=== PATIENT | male | born 1985 | race African-American/Black ===

== ENCOUNTER 2017-07-05 11:12 | Emergency (ER) | payer SELFPAY ==
--- NOTE | 2017-07-05 12:33 | ED ---
GI/ HPI - HPI Summary HPI Summary: Patient presents to the ED with concern for STDs and request for STD testing. He states after intercourse with his girlfriend, she is developing vaginal symptoms. She was then tested for STDs and BV and BV was positive. He is concerned he is giving her the BV. He also endorses protected sex with other individuals. He denies any discharge, testicular pain, penile pain, fevers, sweats or chills. He also would like HIV testing, although didn't denies any known exposure. - History of Current Complaint Chief Complaint: EDGeneral Time Seen by Provider: 07/05/17 11:17 Stated Complaint: STD TESTING Hx Obtained From: Patient Onset/Duration: Started Minutes Ago Timing: Constant Severity: Mild Current Severity: None Pain Intensity: 0 Associated Signs and Symptoms: Positive: Negative - Allergy/Home Medications Allergies/Adverse Reactions: Allergies Allergy/AdvReac Type Severity Reaction Status Date / Time No Known Allergies Allergy Verified 07/05/17 11:19 PMH/Surg Hx/FS Hx/Imm Hx Previously Healthy: Yes - Immunization History Hx Pertussis Vaccination: No Immunizations Up to Date: Unable to Obtain/Confirm Infectious Disease History: Yes Infectious Disease History: Denies: Traveled Outside the [place] in Last 30 Days - Social History Occupation: Employed Full-time Lives: With Family Alcohol Use: Weekly Substance Use Type: Reports: None, Marijuana Smoking Status (MU): Light Every Day Tobacco Smoker Review of Systems Constitutional: Negative Negative: Fever, Chills, Fatigue, Skin Diaphoresis Eyes: Negative Cardiovascular: Negative Respiratory: Negative Negative: Abdominal Pain, Vomiting, Diarrhea, Nausea Genitourinary: Negative Positive: no symptoms reported, see HPI Neurological: Negative Psychological: Normal All Other Systems Reviewed And Are Negative: Yes Physical Exam Triage Information Reviewed: Yes Vital Signs On Initial Exam: Initial Vitals Temp Pulse Resp BP Pulse Ox 99.3 F 97 16 139/96 96 07/05/17 11:19 07/05/17 11:19 07/05/17 11:19 07/05/17 11:19 07/05/17 11:19 Vital Signs Reviewed: Yes Appearance: Positive: Well-Appearing, Well-Nourished Skin: Positive: Warm, Skin Color Reflects Adequate Perfusion Head/Face: Positive: Normal Head/Face Inspection Eyes: Positive: EOMI Neck: Positive: Supple, No Lymphadenopathy Respiratory/Lung Sounds: Positive: Clear to Auscultation Cardiovascular: Positive: RRR, Pulses are Symmetrical in both Upper and Lower Extremities Neurological: Positive: Speech Normal Psychiatric: Positive: Normal AVPU Assessment: Alert Diagnostics - Vital Signs Vital Signs Temp Pulse Resp BP Pulse Ox 07/05/17 11:19 99.3 F 97 16 139/96 96 - Laboratory Lab Statement: Any lab studies that have been ordered have been reviewed, and results considered in the medical decision making process. GIGU Course/Dx - Course Course Of Treatment: Patient arrives to the ED with a request for STD testing after his girlfriend was tested positive for bacterial vaginosis. Provider gave education and information regarding bacterial vaginosis and as an overgrowth of bacteria and not an STD. However, he then states he had intercourse, although protected, with another female. STD status unknown. He requests HIV testing as well. I have given him education on safe sex practices , and will call with any positive results. He denies any physical symptoms and is otherwise healthy. Takes no medications. - Diagnoses Provider Diagnoses: Concern about STD in male without diagnosis Discharge - Discharge Plan Condition: Stable Disposition: HOME Patient Education Materials: Bacterial Vaginosis (ED), Sexually Transmitted Diseases (ED), Safe Sex (ED) Referrals: No Primary Care Phys,NOPCP [Primary Care Provider] - Additional Instructions: Continue information on STDs, safe sex and bacterial vaginosis. Bacterial vaginosis as explained is not an STD. We will call with any positive results If you do not receive a phone call from us the test results are negative However, you may always call the emergency room to request the results The phone number here is [phone]
[2017-07-05 13:04] VITALS: BP 0/0
== END 2017-07-05 12:40 | disposition home or self-care (01) ==
LOC: ED 11:12
DX: Z11.3 Encounter for screening for infections with a predominantly sexual mode of transmission (principal); F17.200 Nicotine dependence, unspecified, uncomplicated
CPT/HCPCS: 36415; 86592; 86703; 87491; 87591; 99282

== ENCOUNTER 2018-02-13 12:54 | Emergency (ER) | payer SELFPAY ==
[2018-02-13 13:24] VITALS: BP 123/58
[2018-02-13] MEDS ORDERED: Tetan/Diph/Pertus SYR(Tdap)* 0.5 ML SYR(BOOSTRIX) use SYR IM ONE ×2 (14:48→14:50)
--- NOTE | 2018-02-13 14:53 | UC ---
HPI Wound/Suture Re-check - HPI Summary HPI Summary: The patient is a 32 y/o M presenting to [facility] with a chief complaint of small puncture wound with erythema and swelling in the right heel of his foot starting yesterday after stepping on a pin. He stepped on the steel pin a few days ago, and the wound has since been sharply painful, rated 7/10 in severity. He notes that he was walking barefoot when the incident occurred, but the pin was intact at time of removal so he is not concerned for a foreign body. The pain is aggravated by standing and ambulation and alleviated by nothing. He is not UTD on his tetanus shot. - History Of Current Complaint Chief Complaint: UCWounds Stated Complaint: PUNCTURE WOUND Hx Obtained From: Patient Onset/Duration: Sudden Onset, Lasting Days, Still Present Severity: Moderate Pain Intensity: 7 Pain Scale Used: 0-10 Numeric Feet (Multiple View): 1 - puncture wound in the right heel - Allergies/Home Medications Allergies/Adverse Reactions: Allergies Allergy/AdvReac Type Severity Reaction Status Date / Time No Known Allergies Allergy Verified 02/13/18 13:24 PMH/Surg Hx/FS Hx/Imm Hx Endocrine History: Other Other Endocrine History: NEGATIVE: diabetes Cardiovascular History: Other Other Cardiovascular History: NEGATIVE: HTN - Surgical History Surgical History: Yes Surgery Procedure, Year, and Place: brain surgery for hematoma - Family History Known Family History: Negative: Hypertension, Diabetes - Social History Alcohol Use: Weekly Substance Use Type: Marijuana Smoking Status (MU): Light Every Day Tobacco Smoker Review of Systems Constitutional: Other - NEGATIVE: fever Skin: Other - POSTIVE: puncture would in the bottom of right foot with pain, swelling, and redness All Other Systems Reviewed And Are Negative: Yes Physical Exam - Summary Physical Exam Summary: VITAL SIGNS: Reviewed. GENERAL: Patient is a well-developed and nourished male who is lying comfortable in the stretcher. Patient is not in any acute respiratory distress. HEAD AND FACE: Normocephalic EYES: PERRLA, EOMI x 2. EARS: Hearing grossly intact. MOUTH: Oropharynx within normal limits. NECK: Supple, trachea is midline, no adenopathy, no JVD, no carotid bruit. CHEST: Symmetric, no tenderness at palpation LUNGS: Clear to auscultation bilaterally. No wheezing or crackles. CVS: Regular rate and rhythm, S1 and S2 present, no murmurs or gallops appreciated. ABDOMEN: Soft, non-tender. Bowel sounds are normal. No abdominal abnormal pulsations. EXTREMITIES: Full ROM in all major joints, no edema, no cyanosis or clubbing. NEURO: Alert and oriented x 3. No acute neurological deficits. Speech is normal and follows commands. SKIN: Dry and warm, Surrounding erythema in sole and heel on right foot, tender to palpation Triage Information Reviewed: Yes Vital Signs: Initial Vital Signs Temp 98.2 F 02/13/18 13:19 Pulse 98 02/13/18 13:19 Resp 20 02/13/18 13:19 BP 123/58 02/13/18 13:19 Pulse Ox 97 02/13/18 13:19 Vital Signs Reviewed: Yes Course/Dx - Course Course Of Treatment: This patient is a 32-year-old male who presents to the urgent care with a puncture wound in the right heel. There is no suspicion for foreign body since the patient saw the entire pin when he took it out of his heel. Therefore there are no x-rays needed. The patient declined x-ray. It seems that the patient is dealing with cellulitis, therefore the patient was given Bactrim. He was barefooted and not using sneakers, therefore there is a low suspicion for pseudomonas. Patient was given tetanus booster since the last tetanus shot he had was more than 5 years ago. He was instructed that he should give about 48 hours to improve symptoms, otherwise he should go to the emergency department for blood workup and further assessment. The patient understands and agrees. Patient is hemodynamically stable alert and oriented 3. - Differential Dx - Laceration/Wound Differential Diagnoses: Abscess, Cellulitis, Hematoma Provider Diagnoses: Cellulitis. Puncture wound Discharge - Sign-Out/Discharge Documenting (check all that apply): Patient Departure - Patient will be discharged home. All imaging exams completed and their final reports reviewed: No Studies - Discharge Plan Condition: Improved Disposition: HOME Prescriptions: Sulfamethox/Trimethoprim DS* [Bactrim DS 800/160 TAB*] 1 tab PO BID #202 tab Patient Education Materials: Puncture Wound (ED), Cellulitis (ED) Forms: *Work Release Referrals: [facility] [Outside] Additional Instructions: Take medications as instructed and adhere to plan Take Acetaminophen or ibuprofen for pain or fever Increase your fluid intake Return to the or go to the emergency department if symptoms worsen Follow-up with primary care physician in next 2-3 days - Billing Disposition and Condition Condition: IMPROVED Disposition: Home - Attestation Statements Document Initiated by Natalie: Yes Documenting Scribe: Xochitl Garcia Provider For Whom Natalie is Documenting (Include Credential): Dr. Usman Dial MD Scribe Attestation: Xochitl Meng, scribed for Dr. Usman Dial MD on 02/13/18 at 1738. Scribe Documentation Reviewed: Yes Provider Attestation: The documentation as recorded by the Xochitl tobar accurately reflects the service I personally performed and the decisions made by me, Dr. Usman Dial MD
== END 2018-02-13 15:05 | disposition home or self-care (01) ==
LOC: UCEAST 12:54
DX: S91.331A Puncture wound without foreign body, right foot, initial encounter (principal); L03.115 Cellulitis of right lower limb; W22.09XA Striking against other stationary object, initial encounter; Y92.9 Unspecified place or not applicable
CPT/HCPCS: 90471; 90715; 99212; G0463

== ENCOUNTER 2018-09-17 19:06 | Emergency (ER) | payer SELFPAY ==
--- NOTE | 2018-09-17 20:32 | UC ---
Nausea/Vomiting/Diarrhea HPI - HPI Summary HPI Summary: Started with N/V at 0400 and this has now mostly resolved. Now having watery diarrhea and mild abdominal cramping. - History of Current Complaint Chief Complaint: UCGI Stated Complaint: STOMACH,VOMITTING,DIARRHEA Time Seen by Provider: 09/17/18 20:18 Hx Obtained From: Patient Onset/Duration: Sudden Onset Timing: Constant Severity Initially: Mild Severity Currently: Moderate Pain Intensity: 4 Character: Cramping Aggravating Factor(s): Nothing Alleviating Factor(s): Nothing Nausea/Vomiting Presence: Nauseated, Vomiting Vomiting Frequency: Every 1-2 hours - gone now Diarrhea Frequency: Every 1-2 hours Diarrhea Duration: 0-12 hours Diarrhea Characteristics: Watery - Allergies/Home Medications Allergies/Adverse Reactions: Allergies Allergy/AdvReac Type Severity Reaction Status Date / Time shellfish derived Allergy Severe LIP Verified 09/17/18 19:49 SWELLING, TONGUE ITCHING Home Medications: Home Medications Bismuth Subsalicylate [Pepto-Bismol] 262 mg PO ONCE PRN 09/17/18 [History Confirmed 09/17/18] PMH/Surg Hx/FS Hx/Imm Hx Previously Healthy: Yes - Surgical History Surgical History: Yes Surgery Procedure, Year, and Place: brain surgery for hematoma - Family History Known Family History: Negative: Hypertension, Diabetes - Social History Alcohol Use: Weekly Alcohol Amount: 2-3x/WEEK Substance Use Type: Marijuana Smoking Status (MU): Current Every Day Smoker Type: Cigarettes Amount Used/How Often: 6-8 CIG/DAY Review of Systems All Other Systems Reviewed And Are Negative: Yes Gastrointestinal: Positive: Abdominal Pain, Vomiting, Diarrhea, Nausea Physical Exam - Summary Physical Exam Summary: Non-toxic in appearance with stable vitals Triage Information Reviewed: Yes Appearance: Well-Appearing Vital Signs: Initial Vital Signs Temp 99.1 F 09/17/18 19:43 Pulse 112 09/17/18 19:43 Resp 16 09/17/18 19:43 BP 132/94 09/17/18 19:43 Pulse Ox 100 09/17/18 19:43 Vital Signs Reviewed: Yes Eye Exam: Normal ENT Exam: Normal Neck exam: Normal Respiratory Exam: Normal Cardiovascular Exam: Normal Abdominal Exam: Normal Bowel Sounds: Positive: Present Naus/Vom/Diarrhea Course/Dx - Course Course Of Treatment: This is likely viral or self-limited AGE and I will treat him symptomatically. - Differential Dx/Diagnosis Provider Diagnosis: AGE (acute gastroenteritis) Condition At Discharge: Stable Discharge - Sign-Out/Discharge Documenting (check all that apply): Patient Departure All imaging exams completed and their final reports reviewed: No Studies - Discharge Plan Condition: Stable Disposition: HOME Patient Education Materials: Gastroenteritis (ED) Forms: *Work Release Referrals: No Primary Care Phys,NOPCP [Primary Care Provider] - - Billing Disposition and Condition Condition: STABLE Disposition: Home
[2018-09-17 20:51] LABS: Influenza A Molecular NEGATIVE (Negative); Influenza B Molecular NEGATIVE (Negative)
[2018-09-17 21:26] VITALS: BP 125/75
== END 2018-09-17 21:10 | disposition home or self-care (01) ==
LOC: UCEAST 19:06
DX: K52.9 Noninfective gastroenteritis and colitis, unspecified (principal); Z91.013 Allergy to seafood; F17.210 Nicotine dependence, cigarettes, uncomplicated
CPT/HCPCS: 36415; 86703; 99211; G0463

== ENCOUNTER 2023-10-20 16:00 | Inpatient (IN) ==
[2023-10-20 17:09] LABS: ABS Basophils 0.1 10^3/uL (0.0-0.1); ABS Eosinophils 0.1 10^3/uL (0.0-0.5); ABS Lymphocytes 4.1 10^3/uL (1.0-4.8); ABS Monocytes 0.6 10^3/uL (0.0-1.1); ABS Neutrophils 3.8 10^3/uL (1.5-7.6); ABS Nucleated RBC 0.01 10^3/ul; Eosinophil % 1.6 %; Hematocrit 46.6 % (38-53); Hemoglobin 15.5 g/dL (13.2-16.3); Lymphocyte % 47.3 %; Mean Corpuscular Hemoglobin 29.9 pg (27-33); Mean Corpuscular Hgb Conc 33.3 g/dL (31-36); Mean Corpuscular Volume 89.9 fL (80-97); Mean Platelet Volume 7.3 fL (7.5-11.2); Nucleated Red Blood Cells % 0.1 %/100WBC (0.0-0.8); Platelet Count 247 10^3/uL (150-450); Red Blood Count 5.18 10^6/uL (4.06-5.63); Red Cell Distribution Width 14.6 % (12-17); White Blood Count 8.7 10^3/uL (3.6-10.2)
[2023-10-20 17:49] LABS: ALT 20 U/L (7-52); AST 18 U/L (13-39); Acetaminophen < 15 mcg/mL; Albumin 4.7 g/dL (3.2-5.2); Albumin/Globulin Ratio 2.2 (1-3); Alcohol, S < 13 mg/dL (<13); Alkaline Phosphatase 51 U/L (35-149); Anion Gap 6 mmol/L (2-16); Blood Urea Nitrogen 8 mg/dL (6-24); CO2 Carbon Dioxide 29 mmol/L (22-32); Calcium 9.9 mg/dL (8.6-10.3); Chloride 106 mmol/L (101-111); Creatinine, Serum 1.03 mg/dL (0.67-1.17); Globulin 2.1 g/dL (2-4); Glucose 97 mg/dL (70-100); Potassium 4.8 mmol/L (3.5-5.0); Salicylate < 2.50 mg/dL (<30); Sodium 141 mmol/L (135-145); Total Bilirubin 0.3 mg/dL (0.2-1.0); Total Protein 6.8 g/dL (6.4-8.9); eGFR CKD-EPI 96.5 (>60)
[2023-10-20] MEDS ORDERED: Al Hydrox/Mg Hydrox/Simet LIQ 30 ML UDC PO PRN (18:03)
[2023-10-20 18:22] LABS: Urine Appearance Clear; Urine Bilirubin Negative (Negative); Urine Blood Negative (Negative); Urine Color Light-Yellow; Urine Glucose Negative (Negative); Urine Ketones Negative (Negative); Urine Nitrite Negative (Negative); Urine Protein Negative (Negative); Urine Urobilinogen Negative (Negative); Urine pH 5.5 (5.0-8.0)
[2023-10-20 18:40] LABS: Urine Benzodiazepine Screen None Detected (None Detect); Urine Cannabinoids Screen Presumptive Positive (None Detect); Urine Opiates Screen None Detected (None Detect)
[2023-10-20] MEDS ORDERED: Nicotine GUM 4MG FRUIT FLAVOR PO PRN (19:00)
[2023-10-21 07:49] VITALS: BP 117/64
[2023-10-21] MEDS: Nicotine PATCH 21 MG/24 HR PATCH TRANSDERM SCH (09:57)
[2023-10-21] MEDS: Vitamin THERAPEUTIC TAB PO SCH (09:57)
== END 2023-10-21 16:30 | disposition home or self-care (01) | DRG 755 ==
LOC: ED 16:00 → BSU 17:36
PROVIDERS: ADMIT Psychiatry & Neurology Psychiatry; ATTEND Psychiatry & Neurology Psychiatry